=== PATIENT | female | born 1940 | race Caucasian/White ===

== ENCOUNTER 2022-12-18 09:20 | Emergency (ER) | payer MEDICARE, BC ==
[~2022-12-18] VITALS: Ht 170.2 cm; Wt 60.8 kg
[2022-12-18 09:40] VITALS: BP 136/62
[2022-12-18 10:08] VITALS: BP 136/62
== END 2022-12-18 10:09 | disposition home or self-care (01) ==
LOC: ED 09:20
DX: S60.443A External constriction of left middle finger, initial encounter (principal); W49.04XA Ring or other jewelry causing external constriction, initial encounter